=== PATIENT | female | born 1980 | race Hispanic/Latino ===

== ENCOUNTER 2017-12-17 22:41 | Emergency (ER) | payer SELFPAY ==
[2017-12-17] MEDS ORDERED: IPRATROPIUM/ALBUTEROL SULFATE 3 ML SOLUTION IH ONE (23:04)
[2017-12-17 23:20] LABS: APPEARANCE,URINE Cloudy (CLEAR); BILIRUBIN,URINE Negative (NEGATIVE); COLOR,URINE Yellow (YELLOW); GLUCOSE, URINE (UA) Negative (NEGATIVE); KETONES,URINE Negative (NEGATIVE); LEUKOCYTE ESTERASE ,URINE Small (NEGATIVE); NITRATE,URINE Positive (NEGATIVE); OCCULT BLOOD,URINE Negative (NEGATIVE); PROTEIN,URINE Negative (NEGATIVE)
[2017-12-17 23:23] LABS: BASOPHILS % (AUTO) 0.2 % (0.0-5.0); EOSINOPHILS % (AUTO) 0.6 % (0.0-8.0); LYMPHOCYTES % (AUTO) 8.8 % (21.0-51.0); MEAN CORPUSCULAR HEMOGLOBIN 31.1 pg (27.0-33.0); MEAN CORPUSCULAR VOLUME 88.9 fL (79-99); MONOCYTES % (AUTO) 9.5 % (3.0-13.0); NEUTROPHILS % (AUTO) 80.9 % (40.0-77.0); PLATELET COUNT (AUTO) 192 K/uL (130-400); RED BLOOD CELL COUNT(AUTO) 4.16 MIL/uL (4.00-5.50); RED CELL DISTRIBUTION WIDTH 12.7 % (11.0-15.5); WHITE BLOOD COUNT (AUTO) 7.1 K/uL (4.8-10.8)
[2017-12-17 23:29] LABS: HCG,QUAL RESULT NEGATIVE (NEGATIVE)
[2017-12-17 23:31] LABS: BACTERIA,URINE Many /HPF (None Seen); RBC,URINE None Seen /HPF (0-1); SQUAMOUS EPITHELIAL CELL,UR Few /HPF (0-2)
[2017-12-17 23:41] LABS: ALBUMIN 3.7 g/dL (3.5-5.0); BILIRUBIN,TOTAL 0.6 mg/dL (0.2-1.0); CREATININE 0.7 mg/dL (0.5-1.5); TOTAL PROTEIN, SERUM 7.3 g/dL (6.0-8.3)
[2017-12-17 23:51] LABS: POTASSIUM 3.5 mmol/L (3.5-5.1)
[2017-12-18] MEDS ORDERED: LIDOCAINE HCL-MPF 1% 2ML VIAL ONE (00:11)
[2017-12-18] MEDS ORDERED: CEFTRIAXONE SODIUM 1 GM ONE (00:12)
== END 2017-12-18 00:37 | disposition home or self-care (01) ==
LOC: EDH 22:41
DX: J20.9 Acute bronchitis, unspecified (principal); N39.0 Urinary tract infection, site not specified
CPT/HCPCS: 36415; 80053; 81001; 81025; 85025; 87804 ×2; 94640; 96372; 99284; J0696; J3490

== ENCOUNTER 2018-03-19 21:22 | Emergency (ER) | payer OTHER, SELFPAY ==
[2018-03-19 22:22] LABS: RAPID GROUP A STREP NEGATIVE (NEGATIVE)
== END 2018-03-19 23:20 | disposition home or self-care (01) ==
LOC: EDH 21:22
DX: J01.90 Acute sinusitis, unspecified (principal)
CPT/HCPCS: 87804; 87880